=== PATIENT | male | born 1970 | race Caucasian/White ===

== ENCOUNTER 2017-10-07 16:20 | Emergency (ER) | payer OTHER, SELFPAY ==
[2017-10-07 15:45] VITALS: BP 122/78; PULSE 78; RESP 21; TEMP 36.6; O2SAT 98
[2017-10-07 16:24] VITALS: BP 136/98; PULSE 78; RESP 21; TEMP 36.6; O2SAT 98
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
[2017-10-07] MEDS: MORPHINE 4 MG/ML INJ IV ×2 (17:18→18:18)
[2017-10-07 17:19] VITALS: BP 137/86; PULSE 73; RESP 12; O2SAT 100
[2017-10-07] MEDS: CEFAZOLIN 2 GM/100 ML FROZ.PIGGY IV (17:23)
[2017-10-07] MEDS: LIDOCAINE 1% W/EPI INJ 20 ML SUBCUT (18:19)
[2017-10-07 19:12] VITALS: BP 130/84; PULSE 82; RESP 12; TEMP 36.7; O2SAT 99
== END 2017-10-07 20:01 | disposition home or self-care (01) ==
PROVIDERS: Emergency Provider Emergency Medicine
DX: S71.111A Laceration without foreign body, right thigh, initial encounter (principal); S40.811A Abrasion of right upper arm, initial encounter; S40.022A Contusion of left upper arm, initial encounter; W20.8XXA Other cause of strike by thrown, projected or falling object, initial encounter; Y99.0 Civilian activity done for income or pay
CPT/HCPCS: 12057; 13121; 13122; 73090; 73562; 96365; 96375; 96376; 99284; J0690; J2270